=== PATIENT | male | born 1935 | race Caucasian/White ===

== ENCOUNTER 2021-01-30 13:02 | Inpatient (IN) | payer MEDICARE ==
[~2021-01-30] VITALS: Ht 170.2 cm; Wt 78.2 kg
--- NOTE | 2021-01-30 14:28 | REP ---
INDICATION: rolled eye COMPARISON: None. TECHNIQUE: AP, lateral, bilateral oblique views. FINDINGS: Comminuted by malleolar fractures with ankle dislocation and overlying soft tissue swelling noted. IMPRESSION: Comminuted by malleolar fracture dislocation of the ankle with soft tissue swelling. <Electronically signed by Venkata Hallman > 01/30/21 [id number]
--- NOTE | 2021-01-30 14:30 | REP ---
INDICATION: fall COMPARISON: None. TECHNIQUE: AP, lateral, bilateral oblique and sunrise views. FINDINGS: Osteopenia and degenerative changes. No acute fracture or dislocation. No effusion. IMPRESSION: Osteopenia and degenerative changes. No acute fracture or dislocation. <Electronically signed by Venkata Hallman > 01/30/21 [id number]
[2021-01-30] MEDS ORDERED: ACETAMINOPHEN 500 MG TAB PO ONE (14:55)
--- NOTE | 2021-01-30 15:17 | REP ---
INDICATION: r/o maisonneuve fx COMPARISON: None. TECHNIQUE: AP and lateral views of the tibia/fibula FINDINGS: By malleolar fracture dislocation at the ankle. Remainder of the tibia and fibula appear intact. IMPRESSION: By malleolar fracture dislocation at the ankle. Remainder of the tibia and fibula appear intact. <Electronically signed by Venkata Hallman > 01/30/21 [id number]
[2021-01-30] MEDS ORDERED: ONDANSETRON 4MG/2ML VIAL IV ONE (15:30)
[2021-01-30] MEDS ORDERED: MORPHINE 4 MG/ML 1ML VIAL/SYRINGE (J2270) IV ONE (15:30)
--- NOTE | 2021-01-30 16:17 | REP ---
INDICATION: post reduction COMPARISON: None. TECHNIQUE: AP, lateral, oblique views of the right ankle FINDINGS: Patient is status post reduction and casting for by malleolar fractures. IMPRESSION: Satisfactory reduction and casting for by malleolar. <Electronically signed by Venkata Hallman > 01/30/21 [id number]
[2021-01-30 17:30] LABS: RSV AMPLIFICATION NEGATIVE (NEGATIVE)
[2021-01-30] MEDS ORDERED: D5W/0.45% SODIUM CHLORIDE 1,000 ML IV SCH (17:45)
[2021-01-30] MEDS ORDERED: ONDANSETRON 4MG/2ML VIAL IV PRN (17:50)
[2021-01-30] MEDS ORDERED: PERCOCET 5MG/325MG TAB PO PRN ×2 (17:50)
[2021-01-30] MEDS ORDERED: ACETAMINOPHEN TAB 650MG DOSE (2X325MG) PO PRN (17:50)
[2021-01-30] MEDS ORDERED: KETOROLAC 30 MG/ML 1ML VIAL IV ONE (18:00)
[2021-01-30] MEDS ORDERED: PERCOCET 5MG/325MG TAB PO ONE (18:00)
[2021-01-30] MEDS ORDERED: HYDROMORPHONE HCL 0.5 MG/ 0.5 ML SYRINGE (J1170 PER 1) IV ONE (18:00)
[2021-01-30] MEDS ORDERED: OMEP-221 PO (18:06)
[2021-01-30] MEDS ORDERED: ZOCO80TA PO (18:06)
[2021-01-30] MEDS ORDERED: FENO134C PO (18:06)
[2021-01-30] MEDS ORDERED: LOSA50TA88 PO (18:06)
--- NOTE | 2021-01-30 18:11 | REP ---
INDICATION: PREOP FALL COMPARISON: None. TECHNIQUE: PA and lateral. FINDINGS: The mediastinum and cardiac silhouette are normal. The lung espino are clear and without acute consolidation, effusion, or pneumothorax. The skeletal structures are intact and normal. IMPRESSION: No acute cardiopulmonary process. <Electronically signed by Venkata Hallman > 01/30/21 [id number]
[2021-01-30] MEDS ORDERED: NS 1,000 ML IV SCH (18:15)
[2021-01-30] MEDS ORDERED: ASPI81TA26 PO (18:24)
--- NOTE | 2021-01-30 18:32 | HPEPDOC ---
[facility] Medical History & Physical Date of Admission Jan 30, 2021 Date of Service: Jan 30, 2021 History and Physical H&P DICTATED JOB # [id number] a/p: 85 y/o full code male [place] pmh significant for htn, prostate ca s/p prostatectomy, GERD, dyslipidemia, OA was in his usual state of health until today when he slipped while walking from the house to the boathouse slipping on stepping stones covered twisting his ankle, landing on his front right side, and was immediately assisted by his friend who was walking in front of him. In the ER, pt was found to have a right bimalleolar ankle fracture. Ortho Dr. Mckeon recommended surgey on 01/31/21. Medical clearance: pt has no acute cardiac ischemic symptoms, cxr: no edema, and no prior h/o hemodynamically significant valvular disease, CAD/MS, CHF in the past. Pt will be started on his home bp meds. ASA discontinued. He does not take any other antiplatelet or anticoagulants. Pt is medically optimized to proceed to surgery. npo after midnight. ivfluids to prevent hypoglycemia to start at 0500am tomorrow. check pt/ptt/inr.prnn pain meds and antiemetics Right bimalleolar fracture due to mechanical fall HTN, uncontrolled-resumed home meds GERD, PPI Dyslipidemia vit d def prostate ca s/p prostatectomy obesity complicating care. lucero protocol Vital Signs Vital Signs Date Time Temp Pulse Resp B/P (MAP) Pulse Ox O2 Delivery O2 Flow Rate FiO2 01/30/21 16:45 97.5 76 18 166/76 (106) 95 Room Air Laboratory Data Labs 24H Laboratory Tests 2 01/30/21 16:41: Coronavirus (COVID-19)(PCR) NEGATIVE, Influenza Type A (RT-PCR) NEGATIVE, Influenza Type B (RT-PCR) NEGATIVE, Respiratory Syncytial Virus (PCR) NEGATIVE 01/30/21 18:22: CBC/BMP Home Medications Scheduled Aspirin (Aspirin EC) 81 Mg Tablet.dr, 81 MG PO DAILY Fenofibrate,Micronized (Fenofibrate) 134 Mg Capsule, 134 MG PO DAILY Losartan Potassium (Losartan Potassium) 50 Mg Tablet, 50 MG PO DAILY Omeprazole (Omeprazole) 40 Mg Capsule.dr, 40 MG PO DAILY Simvastatin (Zocor) 80 Mg Tablet, 80 MG PO QHS Allergies Coded Allergies: No Known Allergies (Unverified , 01/30/21) A-FIB/CHADSVASC A-FIB History Current/History of A-Fib/PAF?: No Current PO Anticoag Therapy: No Age/Risk Factor Scoring CHADSVASC: CHADSVASC Response (Comments) Value Age Risk Factor Age >/= 75 years old 2 Gender Risk Factor Male 0 Hx of CHF No 0 Hx of HTN Yes 1 Hx of Stroke/TIA/or VTE No 0 Hx of Diabetes No 0 Hx of Vascular Disease No 0 Total 3 Treatment Treatment ordered: NONE CHAPO VENTURA MD Jan 30, 2021 18:32
[2021-01-30 18:37] LABS: BASO % 0.3 % (0.0-1.0); EOS % 0.3 % (0.0-3.0); HEMATOCRIT 41.7 % (42.0-52.0); HEMOGLOBIN 13.7 g/dl (13.5-17.5); LYMPH # 4.8 10^3/uL (1.5-5.0); MEAN CORPUSCULAR HEMOGLOBIN 29.5 pg (27.0-33.0); MEAN CORPUSCULAR HGB CONC 32.9 g/dl (32.0-36.5); MEAN CORPUSCULAR VOLUME 89.9 fl (80.0-96.0); MONO # 0.9 10^3/uL (0.0-0.8); MONO % 5.8 % (2.0-8.0); NEUTROPHILS # 9.2 10^3/uL (1.5-8.5); NEUTROPHILS % 61.3 % (36.0-66.0); PLATELET COUNT, AUTOMATED 223 10^3/uL (150-450); RED BLOOD COUNT 4.64 10^6/uL (4.30-6.10); WHITE BLOOD COUNT 15.1 10^3/uL (4.0-10.0)
[2021-01-30 18:48] LABS: INR 0.96; PARTIAL THROMBOPLASTIN TIME 27.3 SECONDS (24.2-38.5)
[2021-01-30 19:12] LABS: ALBUMIN 4.1 GM/DL (3.2-5.2); ALT/SGPT 22 U/L (12-78); BILIRUBIN,TOTAL 0.5 MG/DL (0.2-1.0); BLOOD UREA NITROGEN 16 MG/DL (7-18); CARBON DIOXIDE LEVEL 26 MEQ/L (21-32); CHLORIDE LEVEL 107 MEQ/L (98-107); CK-MB VALUE MASS 1.4 NG/ML (<3.6); CPK CREATINE PHOSPHOKINASE 187 U/L (39-308); CREATININE FOR GFR 1.02 MG/DL (0.70-1.30); GLOMERULAR FILTRATION RATE > 60.0 (>35); GLUCOSE, FASTING 96 MG/DL (70-100); MB/CK RELATIVE INDEX 0.75 (< OR =4); NT-PRO BNP 355 PG/ML (<450); POTASSIUM SERUM 3.9 MEQ/L (3.5-5.1); SODIUM LEVEL 142 MEQ/L (136-145); TOTAL PROTEIN 6.7 GM/DL (6.4-8.2); TROPONIN I < 0.02 NG/ML (< 0.10)
--- NOTE | 2021-01-30 19:17 | REPVR ---
PROCEDURE INFORMATION: Exam: CT Right Lower Extremity Without Contrast, Ankle Exam date and time: 01/30/2021 5:45 PM Age: 85 years old Clinical indication: Other: Ortho request, pre-op, R bimalleolar fracture TECHNIQUE: Imaging protocol: CT of the Right lower extremity without contrast was performed. Exam focused on the ankle. Radiation optimization: All CT scans at this facility use at least one of these dose optimization techniques: automated exposure control; mA and/or kV adjustment per patient size (includes targeted exams where dose is matched to clinical indication); or iterative reconstruction. COMPARISON: CR Ankle, complete 01/30/2021 4:03 PM FINDINGS: Bones/joints: Comminuted trimalleolar fracture. There is mild posterior displacement of the distal fibular with respect to the proximal shaft. Mild posterior displacement of the posterior lip fracture of the tibia. Minimal medial displacement of the medial malleolar fracture with respect to the parent bone. There is mild widening of the ankle mortise. Small plantar calcaneal spur. Soft tissues: Diffuse soft tissue edema at the ankle consistent with presence of a fracture. Vasculature: Calcifications in the infrapopliteal and foot arteries. IMPRESSION: Comminuted trimalleolar fracture. There is mild posterior displacement of the distal fibular with respect to the proximal shaft. Mild posterior displacement of the posterior lip fracture of the tibia. Minimal medial displacement of the medial malleolar fracture with respect to the parent bone. There is mild widening of the ankle mortise. Electronically signed by: Almas Em On 01/30/2021 19:16:48 PM
--- NOTE | 2021-01-30 19:30 | HPE ---
HISTORY AND PHYSICAL DATE OF ADMISSION: 01/30/2021 CHIEF COMPLAINT: "I twisted my right ankle." HISTORY OF PRESENT ILLNESS: An 85-year-old male with a history of hypercholesterolemia, reflux disease, prostate cancer, status post prostatectomy, vitamin D deficiency, hypercholesterolemia, presents to the emergency room with acute onset of right ankle pain after falling at home. The patient was walking from the house to the boathouse while visiting his friend in the [place] when he slipped and fell, twisting his right ankle. The patient was stepping on some flat stepping stones that was partially covered and the patient rolled forward with the leg going into it with a 6-inch drop, twisted his right ankle and landed on his front right side. His friend was right in front of him and helped him up. He had excruciating 10/10 pain when he bore weight on it, was brought into the emergency room for further evaluation. In the ER, he was found to have a right bimalleolar fracture. Orthopedic surgeon, Dr Mckeon, was consulted and recommended surgical intervention in the morning. The patient otherwise has had no prior history of CAD, [place], CHF in the past. He denies any palpitations, chest pain, pressure, tightness, shortness of breath prior to the fall and been in his usual state of health without any fever, chills, palpitations, lightheadedness, sore throat, tinnitus, ear discharge, PND, orthopnea, lower extremity edema, nausea, vomiting, diarrhea, abdominal pain, dysuria, urgency, frequency, polyphagia, polydipsia, polyuria, changes in weight, bowel habits, sleep pattern, no skin rashes, muscle aches or joint pains. Hospitalist was called to admit the patient for a right bimalleolar fracture for surgical intervention and repair on 01/31/2021. PAST MEDICAL HISTORY: 1. Hypertension. 2. Hypercholesterolemia. 3. Gastroesophageal reflux disease. 4. Prostate cancer. 5. Vitamin D deficiency. PAST SURGICAL HISTORY: 1. Prostatectomy. 2. Uvula surgery. 3. Plastic surgery with rhinoplasty. ALLERGIES: No known drug allergies. HOME MEDICATIONS: 1. Losartan 50 mg daily. 2. Zocor 80 mg daily. 3. Fenofibrate 134 daily. 4. Prilosec 40 mg daily. 5. Aspirin 81 daily. 6. Vitamin D one tablet daily. SOCIAL HISTORY: The patient quit smoking in 1974, previous smoked 1/2 pack a day from his teenage years to 1974. Social alcohol use. Retired, worked in [employer] for 40 years, currently visiting the [facility]. FAMILY HISTORY: Mother age 101 with coronary artery disease. Father age 80, prostate cancer. REVIEW OF SYSTEMS: As per HPI, 12-point system otherwise negative. PHYSICAL EXAMINATION: VITAL SIGNS: Temperature 97.5, pulse 76, respiratory rate 18, blood pressure 166/76, 95% on room air. GENERAL: The patient is awake, alert and oriented x3, answering questions appropriately. Face is symmetric. Tongue is midline. No JVD or thyromegaly, cervical lymphadenopathy. LUNGS: Clear to auscultation. Air entry is equal. No adventitious breath sounds, no wheezing, rales or rhonchi. No kyphoscoliosis. HEART: S1, S2, sinus rhythm. ABDOMEN: Soft, nontender and nondistended. Positive bowel sounds. EXTREMITIES: No cyanosis or clubbing. The patient has a right ankle malleolar fracture that is currently splinted with cool to touch toes on both sides, not dusky, not purplish or bluish in coloration. Pulses could not be felt due to the fixed splint. EKG: Pending. Chest x-ray: No acute cardiopulmonary disease. Ankle x-ray: Right ankle x-ray: Comminuted bimalleolar fracture dislocation of the ankle with soft tissue swelling. Knee x-ray: Osteopenia, degenerative changes. No acute fracture or dislocation. Tib-fib x-ray: Bimalleolar fracture dislocation at the ankle. Remainder of the tibia and fibula remain intact. ASSESSMENT AND PLAN: 85-year-old female with history of hypertension, reflux, hypercholesterolemia, prostate cancer, vitamin D deficiency, had a mechanical fall at home with right ankle bimalleolar fracture. IMPRESSION: 1. Medical clearance. The patient is currently medically optimized. He will be given his blood pressure medications. Aspirin has been held. The patient is optimized to proceed to surgery. 2. Right bimalleolar fracture. NPO after midnight, IV fluids, IV antiemetics and p.r.n. Percocet 1-2 tablets for pain. Bedrest for now, elevate the right lower extremity above the heart. Coronavirus 19 is negative. The patient may proceed to the operating room. 3. Hypertension, uncontrolled secondary to pain. Resume patient's home medications. 4. Reflux disease. Continue on Prilosec. 5. History of prostate cancer, status post prostatectomy. No acute issues. Strict Is and Os and monitor patient's urine output. Creatinine is normal. 6. Vitamin D deficiency. Resume supplements postoperatively. 7. DVT prophylaxis: For now, compression stockings. Hold off on any anticoagulation. The patient is to go to surgery in the morning. 8. Code status: FULL CODE. MTDD
[2021-01-30 21:30] VITALS: BP 159/77
[2021-01-31] VITALS (8 sets, daily range): BP systolic 144–168; BP diastolic 67–95
[2021-01-31] MEDS: D5W/0.45% SODIUM CHLORIDE 1,000 ML IV SCH ×2 (05:46→14:12)
--- NOTE | 2021-01-31 06:22 | ECGEPIP ---
[facility] - ED Test Date: 2021-01-30 Pat Name: KYLEE VASQUEZ Department: Room: [place] [address] Gender: Male Science Specialist: GAGAN : [id number] Requested By: JUAQUIN Baez PA-C Order Number: [id number] Reading MD: Aquiles Duffy Measurements Intervals [place] Rate: 86 P: 87 OR: 268 QRS: -30 QRSD: 90 T: 26 QT: 372 QTc: 445 Interpretive Statements Sinus rhythm with 1st degree AV block Left axis deviation Comparison tracing not on file Electronically Signed on 01-31-2021 6:22:27 EDT by Aquiles Duffy
[2021-01-31] MEDS ORDERED: MIDAZOLAM INJ 2MG/2ML VIAL (J2250 PER 1MG) IV PRN (07:01)
[2021-01-31] MEDS ORDERED: fentaNYL 100 MCG/2 ML INJECTION (J3010) IV PRN ×2 (07:01→13:05)
[2021-01-31] MEDS ORDERED: DESFLURANE 240 ML INHALANT As Ordered ONE (07:38)
[2021-01-31] MEDS ORDERED: LIDOCAINE 2% 100MG/5ML SDV (FOR ANES.) As Ordered ONE (07:39)
[2021-01-31] MEDS ORDERED: propofoL 200 MG/20 ML VIAL As Ordered ONE ×2 (07:39→11:29)
[2021-01-31] MEDS ORDERED: dexameTHASONE 4 MG/ML 1ML VIAL (J1100 PER 1MG) As Ordered ONE (07:40)
[2021-01-31] MEDS ORDERED: fentaNYL 100 MCG/2 ML INJECTION (J3010) As Ordered ONE (07:40)
[2021-01-31] MEDS ORDERED: ONDANSETRON 4MG/2ML VIAL As Ordered ONE (07:40)
[2021-01-31] MEDS ORDERED: TRANEXAMIC ACID 100 MG/ML 10ML VIAL As Ordered ONE (08:32)
[2021-01-31] MEDS ORDERED: ceFAZolin 2 GM/D5W 50 ML IV BAG (J0690 PER 500MG) As Ordered ONE (08:32)
[2021-01-31] MEDS ORDERED: dexameTHASONE 10MG/1ML VIAL PRES.FREE (J1100 PER 1MG) XX ONE (08:50)
[2021-01-31] MEDS ORDERED: ROPIvacaine 0.5% 30ML INJECTION (J2795 PER 1MG) XX ONE (08:50)
[2021-01-31] MEDS ORDERED: LIDOCAINE 1% MDV 20ML VIAL XX ONE (08:50)
--- NOTE | 2021-01-31 08:51 | CR ---
CONSULTATION DATE: 01/30/2021 CHIEF COMPLAINT: Right ankle pain. REASON FOR CONSULT: Right ankle pain. HISTORY OF PRESENT ILLNESS: The patient is an 85-year-old male, who was going down an area of flat stepping stones that was partially covered with gravel and he then twisted his right ankle and noted immediate onset of pain, swelling and inability to bear weight in his ankle. He presented to the emergency department for evaluation and was found to have an unstable nasal fracture. Orthopedics was called for evaluation and treatment. Otherwise, he has no other areas of pain or concern. PAST MEDICAL HISTORY: 1. Hypertension. 2. Hypercholesterolemia. 3. GERD. 4. Prostate cancer. 5. Vitamin D deficiency. PAST SURGICAL HISTORY: 1. Prostatectomy. 2. Uvula surgery. 3. Plastic surgery for rhinoplasty. ALLERGIES: None. HOME MEDICATIONS: 1. Losartan. 2. Zocor. 3. Fenofibrate. 4. Prilosec. 5. Aspirin. 6. Vitamin D. REVIEW OF SYSTEMS: All review of systems was negative except for what is in the HPI. SOCIAL HISTORY: The patient quit smoking in 1974, previously smoked 1/2 pack per day before that. He does use social alcohol. He is otherwise retired. He was in the area visiting a friend in the [facility]. FAMILY HISTORY: Noncontributory for this case. PHYSICAL EXAMINATION: GENERAL: Well-developed, well-nourished, in no acute distress. NEURO: Alert and oriented x4. PSYCH: Normal mood and affect. CARDIAC: Regular rate and rhythm. RESPIRATORY: Nonlabored breathing. Equal chest rise and fall. ABDOMEN: Nontender, nondistended. SKIN: Intact, no ecchymosis, swelling or breaks in the skin. MUSCULOSKELETAL: Focused exam of right lower extremity demonstrates well appearing skin, no breaks in the skin. The patient had swelling to the ankle but no fracture blisters are evident. Evaluation of the skin was done with by the emergency department and was reported to me because when I saw him, he had already undergone closed reduction and splinting. When I evaluated him, he is able to wiggle his toes. He has no pain in his knee, no pain in his proximal leg. Otherwise, neuro exam was difficult because of the splint but he had brisk capillary refill of all digits. IMAGING: Review of the radiographs of the right ankle and the CT scan that was performed demonstrates a trimalleolar ankle fracture with a very small posterior malleolar fragment. ASSESSMENT: This is an 85-year-old male with a right unstable ankle fracture. I had a long discussion about treatment options and my recommendations. Given the unable stable nature of the fracture and his desire to get back to bearing weight and mobilizing, I recommend open reduction and internal fixation. Given the small posterior malleolar fragment, I would recommend fixing the distal fibula and the malleolus with possible syndesmosis fixation. Risks and benefits of the surgery were discussed with the patient and he demonstrated understanding of these risks and he is able to sign informed consent. Plan for open reduction and internal fixation on January 31, 2021.
[2021-01-31] MEDS ORDERED: ePHEDrine SULFATE 25 MG/5 ML(5MG/ML) SYRINGE As Ordered ONE (09:33)
--- NOTE | 2021-01-31 10:06 | IPNPDOC ---
Date Seen The patient was seen on 01/31/21. Progress Note S: 2/10 pain on pain scale. no f/c/sob/cp/pressure/tightness. no other issues per RN overnight. right ankle elevated above heart. O: PE: Vitals: see below GENERAL: no distress HEENT: no jvd dry mm. LUNGS: Clear to auscultation. Air entry is equal. No adventitious breath sounds, no wheezing, rales or rhonchi. No kyphoscoliosis. HEART: S1, S2, sinus rhythm. ABDOMEN: Soft, nontender and nondistended. Positive bowel sounds. EXTREMITIES: No cyanosis or clubbing. The patient has a right ankle malleolar fracture that is currently splinted with cool to touch toes on both sides, not dusky, not purplish or bluish in coloration. Pulses could not be felt due to the fixed splint. EKG: Pending. Chest x-ray: No acute cardiopulmonary disease. Ankle x-ray: Right ankle x-ray: Comminuted bimalleolar fracture dislocation of the ankle with soft tissue swelling. Knee x-ray: Osteopenia, degenerative changes. No acute fracture or dislocation. Tib-fib x-ray: Bimalleolar fracture dislocation at the ankle. Remainder of the tibia and fibula remain intact. LABS/MICRO/IMAGINGSTUDIES: SEE CHART ASSESSMENT AND PLAN: 85-year-old female with history of hypertension, reflux, hypercholesterolemia, prostate cancer, vitamin D deficiency, had a mechanical fall at home with right ankle bimalleolar fracture. 1. Medical clearance. The patient is currently medically optimized. He will be given his blood pressure medications. Aspirin has been held. The patient is optimized to proceed to surgery.Orthopedic surgery consulted. 2. Right bimalleolar fracture. NPO after midnight, IV fluids, IV antiemetics and p.r.n. Percocet 1-2 tablets for pain. Bedrest for now, elevate the right lower extremity above the heart. Coronavirus 19 is negative. The patient may proceed to the operating room for right ankle ORIF. ARU screen postop Postop activity and perioperative antibiotics per orthopedic surgery. 3. Hypertension, resumed on home meds. controlled 4. Reflux disease. Continue on Prilosec. 5. History of prostate cancer, status post prostatectomy. 6. Vitamin D deficiency. Resume supplements postoperatively. 7. DVT prophylaxis: For now, compression stockings. Hold off on any anticoagulation until after right ankle orif 8. Code status: FULL CODE. VS, I&O, 24H, Fishbone Vital Signs/I&O Vital Signs Date Time Temp Pulse Resp B/P (MAP) Pulse Ox O2 Delivery O2 Flow Rate FiO2 01/31/21 05:13 98.2 71 18 144/83 (103) 98 Room Air I&O- Last 24 Hours up to 6 AM 01/31/21 06:00 Intake Total 120 ml Output Total 0 ml Balance 120 ml Laboratory Data 24H LABS Laboratory Tests 2 01/30/21 16:41: Coronavirus (COVID-19)(PCR) NEGATIVE, Influenza Type A (RT-PCR) NEGATIVE, Influenza Type B (RT-PCR) NEGATIVE, Respiratory Syncytial Virus (PCR) NEGATIVE 01/30/21 18:22: Immature Granulocyte % (Auto) 0.3, Neutrophils (%) (Auto) 61.3, Lymphocytes (%) (Auto) 32.0, Monocytes (%) (Auto) 5.8, Eosinophils (%) (Auto) 0.3, Basophils (%) (Auto) 0.3, Neutrophils # (Auto) 9.2H, Lymphocytes # (Auto) 4.8, Monocytes # (Au to) 0.9H, Eosinophils # (Auto) 0.0, Basophils # (Auto) 0.0, Nucleated Red Blood Cells % (auto) 0.0, Prothrombin Time 13.0, Prothromb Time International Ratio 0.96, Activated Partial Thromboplast Time 27.3, Anion Gap 9, Glomerular Filtration Rate > 60.0, Calcium Level 9.0, Total Bilirubin 0.5, Aspartate Amino Transf (AST/SGOT) 24, Alanine Aminotransferase (ALT/SGPT) 22, Alkaline Phosphatase 44L, Total Creatine Kinase 187, Creatine Kinase MB 1.4, Creatine Kinase MB Relative Index 0.75, Troponin I < 0.02, OV-Cga-R-Type Natriuretic Peptide 355, Total Protein 6.7, Albumin 4.1, Albumin/Globulin Ratio 1.6, Thyroid Stimulating Hormone (TSH) 3.640 CBC/BMP Laboratory Tests 01/30/21 18:22 CHAPO VENTURA MD Jan 31, 2021 10:06
[2021-01-31] MEDS ORDERED: ACETAMINOPHEN 1000MG 100ML IV BTL (OFIRMEV) (J0131 PER 10MG) As Ordered ONE (11:45)
[2021-01-31] MEDS ORDERED: BUPIVACAINE HCL 0.5% 10ML VIAL As Ordered ONE (11:52)
[2021-01-31] MEDS ORDERED: LIDOCAINE 1% MDV 20ML VIAL As Ordered ONE (11:52)
--- NOTE | 2021-01-31 12:54 | REP ---
INDICATION: RIGHT ANKLE FRACTURE. COMPARISON: None. TECHNIQUE: Intraoperative fluoroscopic imaging using portable C-arm technique. FINDINGS: Satisfactory open reduction and fixation for by malleolar ankle fractures. Total fluoroscopic time 112.3 seconds IMPRESSION: Satisfactory open reduction and fixation. <Electronically signed by Venkata Hallman > 01/31/21 [id number]
[2021-01-31] MEDS ORDERED: oxyCODONE 5MG TAB PO PRN (13:05)
[2021-01-31] MEDS ORDERED: ONDANSETRON 4MG/2ML VIAL IV PRN (13:05)
[2021-01-31] MEDS ORDERED: LR 1,000 ML IV SCH (13:05)
[2021-01-31] MEDS ORDERED: HYDROMORPHONE HCL 0.5 MG/ 0.5 ML SYRINGE (J1170 PER 1) IV PRN (13:05)
[2021-01-31] MEDS ORDERED: OMEPRAZOLE 20 MG CAP PO ONE (16:00)
[2021-01-31] MEDS ORDERED: LOSARTAN 50MG TABLET PO ONE (16:00)
[2021-01-31] MEDS ORDERED: FENOFIBRATE 145 MG TAB (TRICOR) PO ONE (16:00)
[2021-01-31] MEDS: ceFAZolin SOD 2 GM in IV 1 EA IV SCH (16:19)
--- NOTE | 2021-01-31 16:55 | RO ---
OPERATIVE NOTE DATE OF OPERATION: 01/31/2021 PREOPERATIVE DIAGNOSIS: Right unstable ankle fracture. POSTOPERATIVE DIAGNOSIS: Right unstable ankle fracture. OPERATION PERFORMED: Right ankle, bimalleolar ankle fracture, open reduction and internal fixation. SURGEON: Yao Mckeon MD CLERICAL SPECIALIST: None ANESTHESIA: GET INDICATION FOR OPERATION: The patient is an 85-year-old male who slipped while he was walking down some steps and twisted his right ankle, noting the onset of pain and inability to bear weight. He presented to the emergency department and diagnosed with a trimalleolar ankle fracture. He was indicated for open reduction and internal fixation. His posterior malleolar fragment was very small and it was decided that he would be best treated with distal fibula and medial malleolar open reduction and internal fixation. The patient demonstrated understanding of the risks of surgery to include but not limited to bleeding, infection, damage to local structures, pain, stiffness, need for further surgery. He was able to sign the informed consent. All questions were answered to his full satisfaction. MATERIAL FORWARDED: None. DESCRIPTION OF FINDINGS: The patient had a stable syndesmosis exam with both Cotton test and external rotation stress test after fixation of the fibula and the medial malleolus. INFECTION CLASSIFICATION: 1, clean. ESTIMATED BLOOD LOSS: 30 mL DESCRIPTION OF THE OPERATION: The patient was met in the preoperative holding area where the correct name, identity, operative site, laterality and procedure were verified to be correct without discrepancies. The operative site was marked by myself. The patient underwent a preoperative block by anesthesia. He was then taken to the operating room by nursing and anesthesia providers, placed supine on the operating room table. All bony prominences was padded in the standard fashion. An SCD was placed on the left leg, turned on and remained on throughout the case. Next, the patient underwent general anesthetic and placed under general anesthetic without complication. The patient then had an x-ray brought in to see if we would have adequate views for x-rays. Next, he was prepped and draped in the usual sterile fashion. A timeout was then called. The patient's name, identity, operative site, laterality and procedure were verified without discrepancies. We also confirmed antibiotic administration with weight based Ancef and one gram of TXA within one hour of incision as well. Next, Esmarch was used to exsanguinate the lower limb and tourniquet was inflated to 250 mmHg. Total tourniquet time was 130 minutes. Next, the bony landmarks had previously been marked out after prepping and draping and we started with the fibular exposure. Once the fibula was adequately exposed with a direct lateral approach, meanwhile taking care to look for the superficial peroneal nerve and protect it. It did not come into view during the surgery. Once the fibula was adequately exposed and the fracture fragments were adequately mobilized and cleaned, reduction was performed. First the proximal extent of the fracture which was a separate fracture fragment was reduced and held in place point of reduction clamps. The distal fibular fracture was then clamped as well and held with point of reduction clamps. Under direct visual inspection and on fluoroscopy, an anatomic reduction was achieved. Next, two lag screws 2.7 mm in diameter were placed proximally in the proximal fracture to stabilize this to the proximal fibula prior to fixing the distal fibular fracture. Once these were done lag by technique and once these were completed, we moved our attention to the distal fibular oblique fracture. This was fixed with one lag screw by technique also 2.7 mm in diameter. Once all the lag screws were in, the point of reduction clamp was held distally and a plate was sized and placed after it was prebent. Bone plate was utilized to allow for proximal and distal fixation given the multiple fractures within this fibula. It was fixed proximally with cortical screws and then distally with one cortical screw and then the rest of the distal fibular locking screw holes were then filled with locking screws and then the cortical screws were replaced with locking screws. The three proximal holes of the plate were then finished. I finished filling those with cortical screws and they demonstrated excellent placement and position of the plate. I next turned my attention to the medial malleolus. A medially based incision centered over the medial malleolar fracture was carried down to the level of the medial malleolar fracture. The fracture fragments were cleaned and the joint was visualized as was the posterior tibial tendon which was not trapped. Once adequate mobilization of the fracture fragment and after cleaning the edges, I did a mapping pilot hole with a 2.0 drill bit proximal to the fracture. I used this as a mapping pilot hole for a large point of reduction clamp to clamp the fracture fragment in place and an anatomic reduction was achieved. Two K-wires were placed, one anterior, one posterior to the point of reduction clamps and these were in the appropriate position. Once position was deemed to be appropriate, they were overdrilled and then filled with self-tapping screws both 40 mm in length. Excellent reduction of the medial malleolar fracture was achieved. Next, the ankle was stressed by external rotation and a Cotton test and both were stable, indicating no need for stabilization of the syndesmosis. Next, the wounds were copiously irrigated and closed in layers and sterile dressings were applied. A well-padded L and U splint was then placed and the patient was then aroused from anesthesia, having tolerated the procedure without any complication. Postoperatively, he will remain in the house and likely discharge on postop day one after being cleared from therapy and medicine. He will go back to his home in [place] and follow up with orthopedics there for further care. The patient will get 24 hours of antibiotics and go on DVT chemoprophylaxis per the hospitalist team. The patient did receive preop antibiotics and he will get postop antibiotics and he will get postop DVT chemoprophylaxis per his primary team. ROHIT
[2021-01-31] MEDS: SIMVASTATIN 40 MG TAB PO SCH (20:40)
[2021-02-01] MEDS: ceFAZolin SOD 2 GM in IV 1 EA IV SCH ×2 (01:42→09:17)
[2021-02-01 02:00] VITALS: BP 123/64
[2021-02-01 06:00] VITALS: BP 137/62
[2021-02-01 08:49] LABS: HEMATOCRIT 36.8 % (42.0-52.0); HEMOGLOBIN 12.1 g/dl (13.5-17.5); MEAN CORPUSCULAR HEMOGLOBIN 29.2 pg (27.0-33.0); MEAN CORPUSCULAR HGB CONC 32.9 g/dl (32.0-36.5); MEAN CORPUSCULAR VOLUME 88.9 fl (80.0-96.0); PLATELET COUNT, AUTOMATED 193 10^3/uL (150-450); RED BLOOD COUNT 4.14 10^6/uL (4.30-6.10); WHITE BLOOD COUNT 13.2 10^3/uL (4.0-10.0)
[2021-02-01] MEDS: ENOXAPARIN 40MG/0.4ML SYRINGE (J1650 PER 10MG) SC SCH (09:16)
[2021-02-01] MEDS: OMEPRAZOLE 20 MG CAP PO SCH (09:17)
[2021-02-01] MEDS: ASPIRIN 81MG ENTERIC TABLET PO SCH (09:20)
[2021-02-01] MEDS: FENOFIBRATE 145 MG TAB (TRICOR) PO SCH (09:20)
[2021-02-01] MEDS: LOSARTAN 50MG TABLET PO SCH (09:20)
[2021-02-01 09:26] LABS: BLOOD UREA NITROGEN 14 MG/DL (7-18); CARBON DIOXIDE LEVEL 27 MEQ/L (21-32); CHLORIDE LEVEL 110 MEQ/L (98-107); CREATININE FOR GFR 0.91 MG/DL (0.70-1.30); GLOMERULAR FILTRATION RATE > 60.0 (>35); GLUCOSE, FASTING 108 MG/DL (70-100); SODIUM LEVEL 143 MEQ/L (136-145)
[2021-02-01 10:00] VITALS: BP 133/72
--- NOTE | 2021-02-01 10:32 | IPN ---
PROGRESS NOTE DATE: 02/01/2021 SUBJECTIVE: The patient's pain is 2/10. Recently received a dose of pain medications orally. No shortness of breath. IV fluids overnight. Currently working on physical therapy. The patient's toe was found to be slightly bluish this morning. Dr. Sandoval of orthopedic surgery has been contacted with recommendation to loosen the Jaxson bandage slightly, awaiting Doppler confirmation of pulses, and improvement in the patient's foot color. OBJECTIVE: VITAL SIGNS: Temperature 97.8, pulse 58, respiratory rate 20, blood pressure 137/62, 98% on 3 liters nasal cannula. GENERAL: Awake, alert, and oriented x3. Answering questions appropriately. LUNGS: Clear to auscultation. No wheezing, rales, or rhonchi. HEART: S1, S2. Sinus rhythm. ABDOMEN: Soft, nontender, and nondistended with positive bowel sounds. EXTREMITIES: Right ankle is elevated, slightly cool to touch, and the toes, foot, and leg are bandaged. DIAGNOSTIC STUDIES: Laboratory data and imaging studies have been reviewed. ASSESSMENT: This is an 85-year-old male visiting the area with history of hypertension, prostate CA status post prostatectomy, gastroesophageal reflux, hypercholesterolemia, and vitamin D deficiency who had a mechanical fall at home while walking from the house or boathouse slipping on some stepping stones found to have a right ankle bimalleolar fracture. IMPRESSION: 1. Right bimalleolar fracture status post open reduction internal fixation (ORIF) currently on p.r.n. pain medication and IV antiemetics. Activity per orthopedic surgery. Currently on deep vein thrombosis (DVT) prophylaxis. The patient has a cool foot today. Orthopedic surgeon has been consulted. Will need to monitor for further vascular compromise throughout the day today. RN informed to alert M.D. if worsening cyanosis. 2. Hypertension controlled on home medications. 3. Reflux on Prilosec. 4. History of prostate cancer status post prostatectomy. 5. Vitamin D deficiency. Resume supplements postoperatively. 6. Acute rehabilitation unit (ARU) consulted.
--- NOTE | 2021-02-01 10:42 | IPNPDOC ---
Text Note Date of Service The patient was seen on 02/01/21. NOTE Postop day 1 for right ankle open reduction internal fixation as performed by Dr. Mckeon Orthopedics on-call called to assess patient as he reported numbness and an inability to move his toes this morning. Reportedly he was able to move his toes postoperatively yesterday. He states that he is always had decreased sensation across the top of his toes in the postoperative period. I was in the operating room when I was called. I advised nursing to loosen the tensor wrap and elevate the leg higher than the level of his heart and to loosen the cotton down to skin. On arriving to the floor, the wrap had been loosened however the count was still intact. I took the cotton web roll down and opened it up to expose the skin and then took the pressure off the skin with the splint. The cath appeared to be tender with no signs of compartment syndrome. The patient reports that he had some pressure sensation to the first webspace area in the dorsum of the foot. He was not able to move his toes vigorously; however, there was some slight movement noted. He has good capillary refill to the right foot. His sensation seems to start to decrease over the dorsum of the foot in terms of the level. The patient will be reevaluated later today after he has had the splint opened with decreased pressure on the right foot and ankle. I will update Dr. Mckeon. Addendum: The patient was seen and reevaluated approximately 2 hours later. There not been any significant change; however, the patient had been seen by Dr. Mckeon about half hour previously. Dr. Mckeon explained to him that it may have been associated with the ankle block he received and that he would continue to monitor this. The patient will be followed by Dr. Mckeon. VS,Pengbone, I+O VS, Fishbone, I+O Laboratory Tests 02/01/21 08:36 Vital Signs Date Time Temp Pulse Resp B/P (MAP) Pulse Ox O2 Delivery O2 Flow Rate FiO2 02/01/21 10:00 98.2 70 20 133/72 (92) 98 Nasal Cannula 3.0 01/31/21 12:51 100 I&O- Last 24 Hours up to 6 AM 02/01/21 06:00 Intake Total 2020 ml Output Total 2125 ml Balance -105 ml GITA VEGA MD Feb 01, 2021 10:42
[2021-02-01 14:00] VITALS: BP 127/77
[2021-02-01] MEDS ORDERED: BISACODYL 5 MG TAB PO PRN (15:25)
[2021-02-01] MEDS: MIRALAX *UNIT DOSE* 17GM PACKET PO PRN (18:38)
[2021-02-01 20:19] VITALS: BP 157/77
[2021-02-01] MEDS: SIMVASTATIN 40 MG TAB PO SCH (20:24)
[2021-02-01] MEDS: SENOKOT S TAB PO PRN (20:24)
[2021-02-02 06:00] VITALS: BP 157/77
[2021-02-02 08:31] LABS: BASO % 0.3 % (0.0-1.0); EOS # 0.1 10^3/uL (0.0-0.5); EOS % 0.7 % (0.0-3.0); HEMATOCRIT 38.2 % (42.0-52.0); HEMOGLOBIN 12.4 g/dl (13.5-17.5); LYMPH # 4.8 10^3/uL (1.5-5.0); LYMPH % 42.4 % (24.0-44.0); MEAN CORPUSCULAR HEMOGLOBIN 29.5 pg (27.0-33.0); MEAN CORPUSCULAR HGB CONC 32.5 g/dl (32.0-36.5); MEAN CORPUSCULAR VOLUME 90.7 fl (80.0-96.0); MONO # 0.8 10^3/uL (0.0-0.8); MONO % 7.4 % (2.0-8.0); NEUTROPHILS # 5.5 10^3/uL (1.5-8.5); NEUTROPHILS % 48.8 % (36.0-66.0); PLATELET COUNT, AUTOMATED 193 10^3/uL (150-450); RED BLOOD COUNT 4.21 10^6/uL (4.30-6.10); WHITE BLOOD COUNT 11.4 10^3/uL (4.0-10.0)
[2021-02-02 08:55] LABS: BLOOD UREA NITROGEN 19 MG/DL (7-18); CALCIUM LEVEL 8.9 MG/DL (8.8-10.2); CARBON DIOXIDE LEVEL 30 MEQ/L (21-32); CHLORIDE LEVEL 107 MEQ/L (98-107); GLOMERULAR FILTRATION RATE > 60.0 (>35); GLUCOSE, FASTING 109 MG/DL (70-100); MAGNESIUM LEVEL 2.2 MG/DL (1.8-2.4); POTASSIUM SERUM 3.7 MEQ/L (3.5-5.1); SODIUM LEVEL 143 MEQ/L (136-145)
[2021-02-02] MEDS: OMEPRAZOLE 20 MG CAP PO SCH (09:25)
[2021-02-02] MEDS: ENOXAPARIN 40MG/0.4ML SYRINGE (J1650 PER 10MG) SC SCH (09:25)
[2021-02-02] MEDS: ASPIRIN 81MG ENTERIC TABLET PO SCH (09:26)
[2021-02-02] MEDS: FENOFIBRATE 145 MG TAB (TRICOR) PO SCH (09:26)
[2021-02-02] MEDS: LOSARTAN 50MG TABLET PO SCH (09:27)
[2021-02-02] MEDS: MIRALAX *UNIT DOSE* 17GM PACKET PO PRN (09:35)
--- NOTE | 2021-02-02 11:41 | IPNPDOC ---
Text Note Date of Service The patient was seen on 02/02/21. NOTE Subjective: Patient is an 85-year-old male with a PMHx of Prostate CA s/p Prostatectomy, DLP, Vitamin D deficiency, GERD, who presented to the emergency room after falling at home and expressed right ankle pain. Upon arrival to emergency room, patient was found to have a right ankle fracture and was admitted to the hospital service for further evaluation and treatment. Orthopedic surgery was called on consultation. Patient was seen and examined at the bedside. Patient is working with physical therapy. He denies any chest pain, chest breath, palpitations, nausea, vomiting, abdominal pain or diarrhea. Patient will likely require rehabilitation moving forward. Objective: Vitals (See below) General: Lying in bed, no acute distress, comfortable, AAOx3 HEENT: NC, AT CVS: RRR, +S1S2 Lungs: Fair air entry b/l, no evidence of wheezing, rales or rhonchi Abdomen: Soft, ND, NT Extremities: - Edema, - Calf tenderness, R foot with dressing in place Imaging: Ankle XR 01/30: Comminuted by malleolar fracture dislocation of the ankle with soft tissue swelling. Knee XR /: Osteopenia and degenerative changes. No acute fracture or dislocation. Tib/Fib XR /: By malleolar fracture dislocation at the ankle. Remainder of the tibia and fibula appear intact. Ankle XR /: Satisfactory reduction and casting for by malleolar. Extremity CT 01/30: Comminuted trimalleolar fracture. There is mild posterior displacement of the distal fibular with respect to the proximal shaft. Mild posterior displacement of the posterior lip fracture of the tibia. Minimal medial displacement of the medial malleolar fracture with respect to the parent bone. There is mild widening of the ankle mortise. CXR 01/30: No acute cardiopulmonary process. Assessment and plan: R bimalleolar fracture s/p ORIF - Currently patient reports no significant pain - c/w pain control - Orthopedic surgery on consultation; appreciate their input - Will continue to work with physical therapy and occupational therapy until transitioned to subacute rehabilitation HTN - BP well controlled - c/w Losartan DLP - c/w Simvastatin and Fenofibrate Hx of prostate cancer - s/p prostatectomy Vitamin D deficiency - Will resume supplementation on discharge GERD - c/w Omeprazole DVT prophylaxis - c/w Lovenox Disposition: - Condition ALC status now - Awaiting PT, OT clearance / subacute rehabilitation bed VS,Dina, I+O VS, Dina, I+O Laboratory Tests 02/02/21 08:10 Vital Signs Date Time Temp Pulse Resp B/P (MAP) Pulse Ox O2 Delivery O2 Flow Rate FiO2 02/02/21 09:27 133/60 02/02/21 06:00 97.9 67 18 94 Room Air 02/01/21 10:00 01/31/21 12:51 100 I&O- Last 24 Hours up to 6 AM 02/02/21 06:00 Intake Total 540 ml Output Total 600 ml Balance -60 ml CARROLL EL MD Feb 02, 2021 11:41
[2021-02-02 20:42] VITALS: BP 147/66
[2021-02-02] MEDS: SIMVASTATIN 40 MG TAB PO SCH (20:43)
[2021-02-02] MEDS: MOM 30ML SUSPENSION UDC PO PRN (20:45)
[2021-02-03 05:43] VITALS: BP 161/86
[2021-02-03 07:31] LABS: BASO % 0.3 % (0.0-1.0); EOS # 0.1 10^3/uL (0.0-0.5); EOS % 0.7 % (0.0-3.0); HEMATOCRIT 36.6 % (42.0-52.0); HEMOGLOBIN 12.2 g/dl (13.5-17.5); LYMPH # 4.9 10^3/uL (1.5-5.0); LYMPH % 47.5 % (24.0-44.0); MEAN CORPUSCULAR HEMOGLOBIN 29.8 pg (27.0-33.0); MEAN CORPUSCULAR HGB CONC 33.3 g/dl (32.0-36.5); MEAN CORPUSCULAR VOLUME 89.5 fl (80.0-96.0); MONO # 0.8 10^3/uL (0.0-0.8); MONO % 8.2 % (2.0-8.0); NEUTROPHILS # 4.4 10^3/uL (1.5-8.5); NEUTROPHILS % 42.9 % (36.0-66.0); PLATELET COUNT, AUTOMATED 204 10^3/uL (150-450); RED BLOOD COUNT 4.09 10^6/uL (4.30-6.10); WHITE BLOOD COUNT 10.3 10^3/uL (4.0-10.0)
[2021-02-03 07:48] LABS: BLOOD UREA NITROGEN 19 MG/DL (7-18); CALCIUM LEVEL 8.9 MG/DL (8.8-10.2); CARBON DIOXIDE LEVEL 28 MEQ/L (21-32); CHLORIDE LEVEL 111 MEQ/L (98-107); GLOMERULAR FILTRATION RATE > 60.0 (>35); GLUCOSE, FASTING 109 MG/DL (70-100); MAGNESIUM LEVEL 2.4 MG/DL (1.8-2.4); POTASSIUM SERUM 3.8 MEQ/L (3.5-5.1); SODIUM LEVEL 145 MEQ/L (136-145)
[2021-02-03] MEDS: MIRALAX *UNIT DOSE* 17GM PACKET PO PRN (08:47)
[2021-02-03] MEDS: FENOFIBRATE 145 MG TAB (TRICOR) PO SCH (08:47)
[2021-02-03] MEDS: ASPIRIN 81MG ENTERIC TABLET PO SCH (08:47)
[2021-02-03] MEDS: ENOXAPARIN 40MG/0.4ML SYRINGE (J1650 PER 10MG) SC SCH (08:47)
[2021-02-03] MEDS: OMEPRAZOLE 20 MG CAP PO SCH (08:47)
[2021-02-03] MEDS: LOSARTAN 50MG TABLET PO SCH (08:47)
[2021-02-03 14:00] VITALS: BP 114/70
[2021-02-03] MEDS: SIMVASTATIN 40 MG TAB PO SCH (21:27)
[2021-02-03] MEDS: MOM 30ML SUSPENSION UDC PO PRN (21:27)
[2021-02-03 22:00] VITALS: BP 122/69
[2021-02-04 06:00] VITALS: BP 157/83
[2021-02-04 07:06] LABS: BASO % 0.4 % (0.0-1.0); EOS # 0.1 10^3/uL (0.0-0.5); EOS % 1.1 % (0.0-3.0); HEMATOCRIT 37.9 % (42.0-52.0); HEMOGLOBIN 12.4 g/dl (13.5-17.5); LYMPH # 5.3 10^3/uL (1.5-5.0); LYMPH % 50.8 % (24.0-44.0); MEAN CORPUSCULAR HEMOGLOBIN 29.4 pg (27.0-33.0); MEAN CORPUSCULAR HGB CONC 32.7 g/dl (32.0-36.5); MEAN CORPUSCULAR VOLUME 89.8 fl (80.0-96.0); MONO # 0.8 10^3/uL (0.0-0.8); MONO % 7.6 % (2.0-8.0); NEUTROPHILS # 4.2 10^3/uL (1.5-8.5); NEUTROPHILS % 39.8 % (36.0-66.0); PLATELET COUNT, AUTOMATED 212 10^3/uL (150-450); RED BLOOD COUNT 4.22 10^6/uL (4.30-6.10)
[2021-02-04 07:07] LABS: WHITE BLOOD COUNT 10.5 10^3/uL (4.0-10.0)
[2021-02-04 07:31] LABS: BLOOD UREA NITROGEN 26 MG/DL (7-18); CALCIUM LEVEL 9.3 MG/DL (8.8-10.2); CARBON DIOXIDE LEVEL 30 MEQ/L (21-32); CHLORIDE LEVEL 110 MEQ/L (98-107); CREATININE FOR GFR 0.88 MG/DL (0.70-1.30); GLOMERULAR FILTRATION RATE > 60.0 (>35); GLUCOSE, FASTING 106 MG/DL (70-100); MAGNESIUM LEVEL 2.7 MG/DL (1.8-2.4); POTASSIUM SERUM 3.7 MEQ/L (3.5-5.1); SODIUM LEVEL 144 MEQ/L (136-145)
[2021-02-04] MEDS: LOSARTAN 50MG TABLET PO SCH (08:36)
[2021-02-04] MEDS: ENOXAPARIN 40MG/0.4ML SYRINGE (J1650 PER 10MG) SC SCH (08:36)
[2021-02-04] MEDS: OMEPRAZOLE 20 MG CAP PO SCH (08:36)
[2021-02-04] MEDS: ASPIRIN 81MG ENTERIC TABLET PO SCH (08:36)
[2021-02-04] MEDS: FENOFIBRATE 145 MG TAB (TRICOR) PO SCH (08:36)
[2021-02-04] MEDS: MIRALAX *UNIT DOSE* 17GM PACKET PO PRN (08:38)
[2021-02-04] MEDS: SIMVASTATIN 40 MG TAB PO SCH (20:11)
[2021-02-04] MEDS: SENOKOT S TAB PO PRN (20:11)
[2021-02-04 21:09] VITALS: BP 146/81
[2021-02-05 06:00] VITALS: BP 150/76
[2021-02-05 06:33] LABS: HEMATOCRIT 38.3 % (42.0-52.0); HEMOGLOBIN 12.3 g/dl (13.5-17.5); MEAN CORPUSCULAR HEMOGLOBIN 29.2 pg (27.0-33.0); MEAN CORPUSCULAR HGB CONC 32.1 g/dl (32.0-36.5); PLATELET COUNT, AUTOMATED 212 10^3/uL (150-450); RED BLOOD COUNT 4.21 10^6/uL (4.30-6.10)
[2021-02-05 06:36] LABS: WHITE BLOOD COUNT 10.8 10^3/uL (4.0-10.0)
[2021-02-05 06:42] LABS: BLOOD UREA NITROGEN 27 MG/DL (7-18); CALCIUM LEVEL 9.2 MG/DL (8.8-10.2); CARBON DIOXIDE LEVEL 25 MEQ/L (21-32); CHLORIDE LEVEL 113 MEQ/L (98-107); CREATININE FOR GFR 0.84 MG/DL (0.70-1.30); GLOMERULAR FILTRATION RATE > 60.0 (>35); GLUCOSE, FASTING 106 MG/DL (70-100); MAGNESIUM LEVEL 2.4 MG/DL (1.8-2.4); POTASSIUM SERUM 3.9 MEQ/L (3.5-5.1); SODIUM LEVEL 146 MEQ/L (136-145)
[2021-02-05 06:54] LABS: EOSINOPHILS 2 % (0-3); LYMPHOCYTES 45 % (16-44); MONOCYTES 4 % (0-5); NEUTROPHILS 48 % (28-66); PLATELET ESTIMATE NORMAL (NORMAL)
[2021-02-05] MEDS ORDERED: ACET1TAB55 PO (07:38)
[2021-02-05] MEDS ORDERED: ASPI81TA26 PO (07:38)
[2021-02-05 09:31] VITALS: BP 127/73
[2021-02-05] MEDS: FENOFIBRATE 145 MG TAB (TRICOR) PO SCH (09:31)
[2021-02-05] MEDS: ENOXAPARIN 40MG/0.4ML SYRINGE (J1650 PER 10MG) SC SCH (09:31)
[2021-02-05] MEDS: ASPIRIN 81MG ENTERIC TABLET PO SCH (09:31)
[2021-02-05] MEDS: OMEPRAZOLE 20 MG CAP PO SCH (09:31)
[2021-02-05] MEDS: LOSARTAN 50MG TABLET PO SCH (09:31)
--- NOTE | 2021-02-05 13:31 | DS.PDOC ---
Discharge Summary General Date of Admission Jan 30, 2021 at 17:43 Date of Discharge 02/05/2021 Discharge Summary PROCEDURES PERFORMED DURING STAY: [None]. ADMITTING DIAGNOSES / DISCHARGE DIAGNOSES: R bimalleolar fracture s/p ORIF HTN DLP Hx of prostate cancer Vitamin D deficiency GERD DVT prophylaxis COMPLICATIONS/CHIEF COMPLAINT: Right ankle pain HISTORY OF PRESENT ILLNESS: Patient is an 85-year-old male with a PMHx of Prostate CA s/p Prostatectomy, DLP, Vitamin D deficiency, GERD, who presented to the emergency room after falling at home and expressed right ankle pain. Upon arrival to emergency room, patient was found to have a right ankle fracture and was admitted to the hospital service for further evaluation and treatment. Orthopedic surgery was called on consultation. Patient was seen and examined at the bedside. Denies any CP, SOB, Palpitations, N/V, abdominal pain, C/D or urinary discomfort. Has been working with PT; will be continuing at rehabilitation. HOSPITAL COURSE: R bimalleolar fracture s/p ORIF - Currently patient reports no significant pain - c/w pain control - Orthopedic surgery on consultation; appreciate their input - c/w PT and OT; will be transitioned to rehabilitation on discharge HTN - BP remains well controlled - c/w Losartan DLP - c/w Simvastatin and Fenofibrate Hx of prostate cancer - s/p prostatectomy Vitamin D deficiency - Will resume supplementation on discharge GERD - c/w Omeprazole DVT prophylaxis - c/w Lovenox DISCHARGE MEDICATIONS: Please see below. ALLERGIES: Please see below. PHYSICAL EXAMINATION ON DISCHARGE: Vitals (See below) General: Lying in bed, appears comfortable without any acute distress, AAOx3 HEENT: NC, AT CVS: +S1S2 Lungs: Fair air entry b/l, auscultation is without wheezing / rhonchi / rales on auscultation Abdomen: Soft, non-distended, non-tender Extremities: No evidence of edema, - Calf tenderness, R foot with dressing in place / heel boot in place LABORATORY DATA: Please see below. IMAGING: Ankle XR 01/30: Comminuted by malleolar fracture dislocation of the ankle with soft tissue swelling. Knee XR 01/30: Osteopenia and degenerative changes. No acute fracture or dislocation. Tib/Fib XR 01/30: By malleolar fracture dislocation at the ankle. Remainder of the tibia and fibula appear intact. Ankle XR 01/30: Satisfactory reduction and casting for by malleolar. Extremity CT 01/30: Comminuted trimalleolar fracture. There is mild posterior displacement of the distal fibular with respect to the proximal shaft. Mild posterior displacement of the posterior lip fracture of the tibia. Minimal medial displacement of the medial malleolar fracture with respect to the parent bone. There is mild widening of the ankle mortise. CXR 01/30: No acute cardiopulmonary process. ACTIVITY: [As tolerated]. DISCHARGE PLAN: Please follow up with PCP and Orthopedic surgery within 7 days Remain compliant with treatment plan and medications Return to the ER if you experience any problems DISPOSITION: Rehabilitation facility DISCHARGE CONDITION: [Stable]. TIME SPENT ON DISCHARGE: 35 minutes Vital Signs/I&Os Vital Signs Date Time Temp Pulse Resp B/P (MAP) Pulse Ox O2 Delivery O2 Flow Rate FiO2 02/05/21 09:31 127/73 02/05/21 06:00 97.8 64 18 96 Room Air 02/01/21 10:00 01/31/21 12:51 100 I&O- Last 24 Hours up to 6 AM 02/05/21 06:00 Intake Total 1080 ml Output Total 1100 ml Balance -20 ml Laboratory Data Labs 24H Laboratory Tests 2 02/05/21 05:49: Neutrophils (%) (Auto) , Nucleated Red Blood Cells % (auto) 0.0, Neutrophils 48, Band Neutrophils 1, Lymphocytes (Manual) 45H, Monocytes (Manual) 4, Eosinophils (Manual) 2, Red Blood Cell Morphology NORMAL, Platelet Estimate NORMAL, Anion Gap 8, Glomerular Filtration Rate > 60.0, Calcium Level 9.2, Magnesium Level 2.4 CBC/BMP Laboratory Tests 02/05/21 05:49 Discharge Medications Scheduled Aspirin (Aspirin EC) 81 Mg Tablet.dr, 81 MG PO BID Fenofibrate,Micronized (Fenofibrate) 134 Mg Capsule, 134 MG PO DAILY, (Reported) Losartan Potassium (Losartan Potassium) 50 Mg Tablet, 50 MG PO DAILY, (Reported) Omeprazole (Omeprazole) 40 Mg Capsule.dr, 40 MG PO DAILY, (Reported) Simvastatin (Zocor) 80 Mg Tablet, 80 MG PO QHS, (Reported) Scheduled PRN Acetaminophen (Acetaminophen) 325 Mg Tablet, 1-2 TAB PO Q8HP PRN for MILD/MODERATE PAIN (PS 1-7) Allergies Coded Allergies: No Known Allergies (Unverified , 01/30/21) CARROLL EL MD Feb 05, 2021 13:19
== END 2021-02-05 11:07 | DRG 494 ==
LOC: M ED 13:02 → M ED INP 17:43 → M MS5PR 21:37
PROVIDERS: ADMIT General Practice; ATTEND Internal Medicine
PROC: 0QSG04Z Reposition Right Tibia with Internal Fixation Device, Open Approach (ICD-10-PCS; 2021-01-31)
PROC: 0QSJ04Z Reposition Right Fibula with Internal Fixation Device, Open Approach (ICD-10-PCS; principal; 2021-01-31 08:30)
DX: S82.841A Displaced bimalleolar fracture of right lower leg, initial encounter for closed fracture (principal); I10 Essential (primary) hypertension; K21.9 Gastro-esophageal reflux disease without esophagitis; E78.5 Hyperlipidemia, unspecified; M19.90 Unspecified osteoarthritis, unspecified site; Z85.46 Personal history of malignant neoplasm of prostate; E55.9 Vitamin D deficiency, unspecified; E66.9 Obesity, unspecified; Z20.822 Contact with and (suspected) exposure to COVID-19; Z79.82 Long term (current) use of aspirin; Z79.899 Other long term (current) drug therapy; W01.0XXA Fall on same level from slipping, tripping and stumbling without subsequent striking against object, initial encounter; Y92.828 Other wilderness area as the place of occurrence of the external cause; Z87.891 Personal history of nicotine dependence; Z68.27 Body mass index [BMI] 27.0-27.9, adult